=== PATIENT | female | born 1980 | race Caucasian/White ===

== ENCOUNTER 2018-06-11 09:13 | Emergency (ER) | payer OTHER ==
[~2018-06-11] VITALS: Ht 160 cm; Wt 77.1 kg
--- NOTE | 2018-06-11 09:13 | NUR ---
Pt [facility]
--- NOTE | 2018-06-11 09:17 | NUR ---
Pt arrived to ED with BLS. Pt complains of right lower back pain that is sharp and radiates all over her back and down both legs, with the right leg feeling the worse. Pt states that she "bent down yesterday and the pain started" but "this morning it's way worse". Pt took 2 naproxen at home this am without any relief.
[2018-06-11 09:20] VITALS: BP_SYST 125
--- NOTE | 2018-06-11 09:42 | NUR ---
ER at bedside examining patient.
[2018-06-11] MEDS: MORPHINE 4 MG/ML INJ. SYRINGE IVP ONE ×2 (10:04→15:42)
[2018-06-11] MEDS: NACL 0.9% 1,000 ML IV ONE (10:05)
[2018-06-11 10:12] LABS: HEMATOCRIT 40.5 % (36-48); HEMOGLOBIN 13.2 g/dL (12.0-16.0); MEAN CORPUSCULAR VOLUME 89 fL (79.0-98.0); RED BLOOD CELL COUNT(AUTO) 4.57 MIL/uL (4.2-6.2); WHITE BLOOD COUNT (AUTO) 5.6 K/uL (4.8-10.8)
[2018-06-11 10:13] LABS: BASOPHILS % (AUTO) 0.6 % (0.0-2.0); EOSINOPHILS # (AUTO) 0.1 K/uL (0.0-0.4); EOSINOPHILS % (AUTO) 1.6 % (0.0-4.0); LYMPHOCYTES # (AUTO) 2.1 K/uL (1.0-5.5); LYMPHOCYTES % (AUTO) 37.8 % (20.5-51.5); MEAN CORPUSCULAR HEMOGLOBIN 29 pg (27-31); MEAN CORPUSCULAR HGB CONC 33 % (32-36); MONOCYTES # (AUTO) 0.4 K/uL (0.0-1.0); MONOCYTES % (AUTO) 6.6 % (1.7-9.3); NEUTROPHILS % (AUTO) 53.4 % (40.0-70.0); PLATELET COUNT (AUTO) 230 K/uL (130-430)
[2018-06-11 10:29] LABS: CREATININE 0.66 mg/dL (0.55-1.30); POTASSIUM 3.9 mmol/L (3.5-5.1)
[2018-06-11 10:43] LABS: ALBUMIN 3.9 g/dL (3.4-4.8); TOTAL BILIRUBIN 0.4 mg/dL (0.0-1.0)
[2018-06-11 11:01] LABS: CLARITY/URINE CLEAR (CLEAR); COLOR,URINE YELLOW (YELLOW)
[2018-06-11 11:02] LABS: BILIRUBIN,URINE NEGATIVE (NEGATIVE); BLOOD, URINE NEGATIVE (NEGATIVE); GLUCOSE,URINE NEGATIVE (NEGATIVE); KETONES,URINE NEGATIVE (NEGATIVE); LEUKOCYTE ESTERASE ,URINE TRACE (NEGATIVE); NITRITE, URINE NEGATIVE (NEGATIVE); PH,URINE 5.5 (5.0-8.0); PROTEIN URINE NEGATIVE (NEGATIVE); UROBILINOGEN,URINE 0.2 (0.2-1.0)
[2018-06-11 11:07] LABS: BACTERIA,URINE FEW /HPF (None Seen); MUCUS,URINE 1+ /LPF (None Seen); RBC,URINE 0-3 /HPF (0-3)
--- NOTE | 2018-06-11 12:58 | NUR ---
Pt off Unit Pt taken to CT via Tech
--- NOTE | 2018-06-11 13:10 | NUR ---
Back on Floor Pt returned from CT
--- NOTE | 2018-06-11 14:05 | NUR ---
Pt is resting in bed with at her side. No complaints of distress.
[2018-06-11] MEDS: cefTRIAXone 1 GM IVPB PREMIX 50 ML IV ONE (15:14)
[2018-06-11] MEDS ORDERED: cefTRIAXone 1 GM IVPB PREMIX 50 ML IV ONE (15:18)
[2018-06-11 16:00] VITALS: BP_SYST 121
--- NOTE | 2018-06-11 16:00 | NUR ---
Patient given written and verbal discharge instructions and verbalizes understanding. ER MD discussed with patient the results and treatment provided. Patient in stable condition. ID arm band removed. IV catheter removed intact and dressing applied, no active bleeding. Rx of [id number] and Keflex 500mg given. Patient educated on pain management and to follow up with PMD. Pain Scale 3/10. Opportunity for questions provided and answered. Medication side effect fact sheet provided.
== END 2018-06-11 16:00 | disposition home or self-care (01) ==
LOC: SED 09:13
DX: M51.27 Other intervertebral disc displacement, lumbosacral region (principal)
CPT/HCPCS: 36415; 72131; 74176; 80053; 81000; 85025; 87086; 96365; 96375; 96376; 99284; J0696; J2270; J7030

== ENCOUNTER 2023-04-29 11:51 | Outpatient (CLI) | payer OTHER | END 2023-04-29 19:27 | disposition home or self-care (01) | LOC: SRD 11:51 | PROVIDERS: ATTEND Specialist | DX: D25.0 Submucous leiomyoma of uterus (principal); N92.0 Excessive and frequent menstruation with regular cycle; R10.2 Pelvic and perineal pain; N94.6 Dysmenorrhea, unspecified | CPT/HCPCS: 74740; 58340; Q9967 ==